=== PATIENT | male | born 1950 | race Caucasian/White ===

== ENCOUNTER 2020-02-23 12:58 | Emergency (ER) | payer MEDICARE, MEDICAID ==
[~2020-02-23] VITALS: Ht 177.8 cm; Wt 70.0 kg
[~2020-02-23 12:58] MED LIST: ACET325T14 PO; AMLO-150 PO; ASPI325T17 PO; ATOR10TA9 PO; ATOR20TA37 PO; BISA10SU4 PR; CHLO25CA9 PO; CLOP75TA PO; DOCU240C53 PO; ENOX40SY4 SQ; FLUT16SP24 NAS; FOLI-17 PO; GLIP2.5T3 PO; INSU100I18 SQ; INSU100V5 SQ-INSULIN; LEVO500T47 PO; LISI-170 PO; METF1000 PO; METF10002 PO; METF500T17 PO; NICO-486 TD; PANT40TA6 PO; SENN1TAB94 PO; SITA25TA PO; THIA100T67 PO; [UNRECOGNIZED DRUG - CODE] PO
[2020-02-23 13:05] VITALS: BP 140/82
== END 2020-02-23 15:15 | disposition home or self-care (01) ==
LOC: ED 14:23
DX: M19.012 Primary osteoarthritis, left shoulder (principal); M79.89 Other specified soft tissue disorders; E11.9 Type 2 diabetes mellitus without complications; E78.5 Hyperlipidemia, unspecified; F17.200 Nicotine dependence, unspecified, uncomplicated
CPT/HCPCS: 99283